=== PATIENT | female | born 1950 | race Hispanic/Latino ===

== ENCOUNTER → 2017-12-25 | Outpatient (CLI) | payer OTHER ==
[~2017-12-25] MED LIST: ASPI-555 PO; ATOR40TA71 PO; CLOP75TA32 PO; FISH1CAP49 PO; METF10004 PO; METF500T6 PO; MULT-40 PO; RAMI2.5C15 PO; SPIR25TA6 PO; WARF2.5T85 PO
== END | disposition home or self-care (01) ==
LOC: EDSTATUS 09:00 → SHCH 10:00
PROVIDERS: ATTEND Internal Medicine Cardiovascular Disease
DX: I31.3 Pericardial effusion (noninflammatory) (principal); I42.9 Cardiomyopathy, unspecified
CPT/HCPCS: 93306

== ENCOUNTER 2018-01-03 07:50 | Day surgery (SDC) | payer OTHER ==
[~2018-01-03] VITALS: Ht 157.5 cm; Wt 50.2 kg
[~2018-01-03 07:50] MED LIST changes: +SODIUM CHLORIDE 0.9% 1000ML 1,000 ML IV ONE
[2018-01-03 08:24] LABS: INR 1.04 (0.85-1.15); PROTHROMBIN TIME 10.9 SEC (9.6-11.6)
[2018-01-03 08:53] VITALS: BP 114/67
[2018-01-03] MEDS ORDERED: PROPOFOL 10 MG/ML 20ML VIAL IV ONE ×2 (09:43)
[2018-01-03 10:04] VITALS: BP 117/67
== END 2018-01-03 10:40 | disposition home or self-care (01) ==
LOC: DAH 07:50 → ENDO 07:50
PROVIDERS: ATTEND Internal Medicine Gastroenterology
DX: Z12.11 Encounter for screening for malignant neoplasm of colon (principal); K63.89 Other specified diseases of intestine; I10 Essential (primary) hypertension; E11.9 Type 2 diabetes mellitus without complications; I25.2 Old myocardial infarction; I42.8 Other cardiomyopathies; Z86.73 Personal history of transient ischemic attack (TIA), and cerebral infarction without residual deficits; Z79.899 Other long term (current) drug therapy; Z79.82 Long term (current) use of aspirin; Z79.84 Long term (current) use of oral hypoglycemic drugs; Z79.01 Long term (current) use of anticoagulants
CPT/HCPCS: 36415; 82948 ×2; 85610; 93005; A4606; G0121; J2704 ×2; J7030